=== PATIENT | female | born 1955 | race Caucasian/White ===

== ENCOUNTER 2019-03-18 07:30 | Inpatient (IN) ==
[2019-04-13] MEDS ORDERED: LIDOCAINE W/ SODIUM BICARB 0.5 ML SYR ONE (05:54)
[2019-04-13] MEDS ORDERED: Lactated Ringers 1,000 ML PRIMARY IV ONE ×2 (05:54→06:00)
[2019-04-13] MEDS ORDERED: Vancomycin Inj 1gm vial ONE (05:54)
[2019-04-13] MEDS ORDERED: Sodium Chloride 0.9% 250 ML ONE ×2 (05:54→06:31)
[2019-04-13] MEDS ORDERED: ceFAZolin Inj 2gm (Premix) 2 GM/50 ML BAG IV ONE ×2 (05:54→06:00)
[2019-04-13] MEDS ORDERED: Vancomycin-PHA to Dose IV PRN (06:00)
[2019-04-13] MEDS ORDERED: LIDOCAINE W/ SODIUM BICARB 0.5 ML SYR SUBD ONE (06:00)
[2019-04-13] MEDS ORDERED: Nasal Sanitizer POPSWAB ampule 3 AMP (Nozin) PREOP DOSE ENOS SCH (06:00)
[2019-04-13 06:21] LABS: CLARITY,URINE CLEAR (CLEAR); COLOR,URINE YELLOW (Y); URINE SAMPLE TYPE CLEAN CATCH URINE
[2019-04-13 06:22] LABS: BILIRUBIN,URINE NEGATIVE (NEG); GLUCOSE, URINE (UA) NEGATIVE (NEG); OCCULT BLOOD,URINE Trace-intact (NEG); PROTEIN,URINE NEGATIVE (NEG); UROBILINOGEN,URINE 0.2 EU/dL (0.2)
[2019-04-13] MEDS ORDERED: MIDAZOLAM 5 MG/1 ML ONE (06:30)
[2019-04-13] MEDS ORDERED: REMIFENTANIL 1 MG/1 ML IV ONE (06:30)
[2019-04-13] MEDS ORDERED: PROPOFOL 10 MG/1 ML (200 MG/20 ML) VIAL IV ONE ×2 (06:30→12:04)
[2019-04-13] MEDS ORDERED: REMIFENTANIL HCL 2 MG VIAL IV ONE ×2 (06:30→12:45)
[2019-04-13] MEDS ORDERED: Propofol 1,000 MG/100 ML VIAL IV ONE ×2 (06:30→10:33)
[2019-04-13] MEDS ORDERED: fentaNYL Inj 250 MCG/5 ML VIAL ONE (06:30)
[2019-04-13] MEDS ORDERED: LIDOCAINE MPF 2% - 5 ML (20 MG/1 ML) ONE (06:34)
[2019-04-13] MEDS ORDERED: Sodium Chloride 0.9% vial 10 ML ONE ×2 (06:45→12:07)
[2019-04-13] MEDS ORDERED: BUPIVACAINE 0.25% W/ EPI - 10 ML VIAL ONE (06:45)
[2019-04-13] MEDS ORDERED: BACITRACIN 50,000 UNIT VIAL IRRIG ONE ×2 (06:46→12:07)
[2019-04-13] MEDS ORDERED: IPRATROPIUM/ALBUTEROL SULFATE 3 ML NEB NEB ONE ×3 (07:06→13:51)
[2019-04-13] MEDS ORDERED: ONDANSETRON 4 MG/2 ML VIAL ONE ×2 (07:13→13:06)
[2019-04-13] MEDS ORDERED: DEXAMETHASONE PF 10 MG/1 ML VIAL ONE (07:13)
[2019-04-13] MEDS ORDERED: ePHEDrine Inj 50 MG/ML AMP ONE (08:01)
[2019-04-13] MEDS ORDERED: KETAMINE 100 MG/1 ML - 5 ML ONE (08:24)
[2019-04-13] MEDS ORDERED: Lactated Ringers 2,000 ML PRIMARY IV ONE (12:42)
[2019-04-13] MEDS ORDERED: ceFAZolin 1 GM VIAL ONE (12:42)
[2019-04-13] MEDS ORDERED: HYDROmorphone 2 MG/1 ML ONE ×2 (13:04→13:53)
[2019-04-13] MEDS ORDERED: Acetaminophen 1000mg Inj 1,000 MG/100 ML VIAL IV ONE (13:07)
[2019-04-13] MEDS: HYDROmorphone 2 MG/1 ML IVP PRN ×7 (13:50→14:26)
[2019-04-13] MEDS ORDERED: Prochlorperazine Edisylate Inj 10mg/2ml vial IVP PRN ×2 (13:50→15:19)
[2019-04-13] MEDS ORDERED: LIDOCAINE W/ SODIUM BICARB 0.5 ML SYR SUBD PRN (13:50)
--- NOTE | 2019-04-13 13:52 | CRNA.PROGR ---
Anesthesia Time - Procedure/Recovery Time Start Date: 04/13/19 End Date: 04/13/19 Anesthesia : Time In: 07:35 Anesthesia : Time Out: 13:43 Anesthesia : Total Time: 368 - Total Anesthesia Time Total Anesthesia Time (minutes): 368 - Other Weight: 65.136 kg Height: 5 ft 2 in Body Mass Index (BMI): 26.2 Physical Status: P2 Anesthesia Type: General Anesthesia : ET (TIVA)
--- NOTE | 2019-04-13 13:53 | CRNA.PROGR ---
Anesthesia Recovery Phase I - Post Anesthesia Evaluation Patient's Condition on Arrival in Phase I: Stable Pain Level: 5
[2019-04-13] MEDS ORDERED: MAGNESIUM CITRATE 296 ML SOLUTION PO PRN (15:19)
[2019-04-13] MEDS ORDERED: Vancomycin-PHA to Dose IV SCH (15:19)
[2019-04-13] MEDS ORDERED: PROMETHAZINE 25 MG/1 ML VIAL IM PRN (15:19)
[2019-04-13] MEDS ORDERED: DIAZEPAM 5 MG TABLET PO PRN (15:19)
[2019-04-13] MEDS ORDERED: MAGNESIUM 400 MG/5 ML - 30 ML (MILK OF MAGNESIA) PO PRN (15:19)
[2019-04-13] MEDS ORDERED: CYCLOBENZAPRINE 10 MG TABLET PO PRN (15:19)
[2019-04-13] MEDS ORDERED: Fleet Enema 133ml RECTAL PRN (15:19)
[2019-04-13] MEDS ORDERED: Ondansetron ODT Tab 4 MG TAB PO PRN (15:19)
[2019-04-13] MEDS ORDERED: HYDROcodone-APAP 10 MG-325 MG TABLET PO PRN (15:19)
[2019-04-13] MEDS ORDERED: LISINOPRIL PO SCH (15:19)
[2019-04-13] MEDS ORDERED: ONDANSETRON 4 MG/2 ML VIAL IVP PRN (15:19)
[2019-04-13] MEDS ORDERED: HYDROcodone-APAP 5 MG -325 MG TABLET PO PRN (15:19)
[2019-04-13] MEDS ORDERED: BISACODYL 5 MG TABLET PO PRN (15:19)
[2019-04-13] MEDS ORDERED: HYDROCHLOROTHIAZIDE PO SCH (15:19)
[2019-04-13] MEDS ORDERED: DOCUSATE 100 MG CAPSULE PO PRN (15:19)
--- NOTE | 2019-04-13 15:35 | CONSULT ---
Consult Note - Consult Reason for Consult: PreOp Consulation : Neuro Requesting Physician: Diann Primary Care Provider: WINNIE LEO - History of Present Illness History of Present Illness: Is a very nice 64-year-old female from [facility] here for neck surgery by Dr. Tidwell hospitalist was consulted for hypertension. Patient denies any chest pain nausea vomiting and is postop in stable and was seen with nursing and [facility] [facility] in the room Past Medical History Medical History: Hypertension, cholesterol, depression Tobacco Use: Current Every Day Smoker Do you dip or chew tobacco: No In the Past 12 Months, Have Used or Abuse Any of the Following Substance: None Review of Systems - Review of Systems All Systems: Reviewed & No Additional Complaints Except as Stated - Respiratory Respiratory: DENIES: Negative System Review, Cough, Sputum, Dyspnea At Rest, Dyspnea with Exertion, Pleuritic Pain, Hemoptysis, Wheezing, Other, See HPI - Cardiovascular Cardiovascular: DENIES: Negative System Review, Chest Pain, Edema, Syncope, Palpitations, Orthopnea, Paroxysmal Nocturnal Dyspnea, Other, See HPI - Gastrointestinal Gastrointestinal / Abdominal: DENIES: Negative System Review, Nausea, Vomiting, Diarrhea, Constipation, Abdominal Pain, Bloody Stool, Poor Appetite, Heartburn, Regurgitation, Bloating, Lactose Intolerance, Melena, Bright Red Blood per Rectum, Other, See HPI Medication / Allergies Home Medications: Home Medications Medication Instructions Recorded Confirmed ascorbic acid (vitamin C) 500 mg 1 cap PO DAILY cap 11/26/18 04/13/19 capsule atorvastatin 10 mg tablet 10 mg PO QDAY 11/26/18 04/13/19 bupropion HCl SR 150 mg tablet,12 150 mg PO QDAY 11/26/18 04/13/19 hr sustained-release cholecalciferol (vitamin D3) 2,000 2,000 unit PO QDAY 11/26/18 04/13/19 unit capsule clobetasol 0.05 % topical cream 1 applic TOPICAL BID 11/26/18 04/13/19 diclofenac 0.1 % eye drops 1 drp OP QID 11/26/18 04/13/19 lisinopril 20 1 tab PO QDAY 11/26/18 04/13/19 mg-hydrochlorothiazide 25 mg tablet multivitamin,[id number] 1 tab PO QDAY 11/26/18 04/13/19 tablet oxycodone 10 mg tablet 10 mg PO Q4-6H PRN 11/26/18 04/13/19 vitamin B complex tablet 1 tab PO QDAY 11/26/18 04/13/19 Diazepam 5 mg PO .SEE INSTRUCT BELOW PRN 04/10/19 04/13/19 Allergies/Adverse Reactions: Allergies Allergy/AdvReac Type Severity Reaction Status Date / Time No Known Allergies Allergy Verified 04/13/19 06:19 Exam - Vitals Vital Signs: Vital Signs Temperature 96.8 F Temperature Source Temporal Artery Scan Pulse Rate [Pulse Oximeter] 112 Pulse Rate 100 Respiratory Rate 16 Blood Pressure [Right Arm] 140/97 Blood Pressure 110/83 Pulse Ox 96 Oxygen Flow Rate 3 Oxygen Delivery Method Nasal Cannula Height 5 ft 2 in Weight 143 lb 9.6 oz - General General Appearance: No Acute Distress, Cooperative - Head Head Exam: Normal Inspection - Eye Eye Exam: POSITIVE: Normal Appearance, PERRL, EOMI, No Scleral Icterus - Respiratory Respiratory Exam: POSITIVE: Clear to Auscultation - Bilaterally, Breathing Non Labored, Normal To Percussion, Normal to Percussion and Palpation - Cardiovascular Cardiovascular Exam: POSITIVE: RRR, No Murmur, No Clicks, No Gallops, No Rubs, PMI Non-Displaced - GI/Abdominal GI/Abdominal Exam: POSITIVE: Normal Bowel Sounds, Non Tender, Non Distended, Soft, No Masses, No Hepatomegaly, No Splenomegaly, No Organomegaly Assessment and Plan - Patient Problems (1) High blood pressure Current Visit: No Status: Chronic Comment: Stable continue current medication Code(s): I10 - Essential (primary) hypertension (2) High cholesterol Current Visit: No Status: Chronic Comment: Continue current medication Code(s): E78.00 - Pure hypercholesterolemia, unspecified (3) S/P neck surgery, follow-up exam Current Visit: Yes Status: Acute Comment: Defer to Dr. Tidwell for follow-up pain control and discharge orders and instructions Code(s): Z09 - Encounter for follow-up examination after completed treatment for conditions other than malignant neoplasm
[2019-04-13] MEDS: oxyCODONE IR Tab 5 MG TAB PO PRN ×3 (16:07→23:42)
--- NOTE | 2019-04-13 17:04 | GEN.OPNOTE ---
Operative Note Surgery Date: 04/13/19 Preoperative Diagnosis: 1. Chronic neck pain. 2. Headaches most likely cervicogenic. 3. Multilevel cervical degenerative disc disease most advanced at C3-4, C4-5, C5-6 and C6-7. 4. Multilevel cervical spondylosis. 5. Loss of normal cervical lordosis. Postoperative Diagnosis: 1. Chronic neck pain. 2. Headaches most likely cervicogenic. 3. Multilevel cervical degenerative disc disease most advanced at C3-4, C4-5, C5-6 and C6-7. 4. Multilevel cervical spondylosis. 5. Multilevel cervical central canal stenosis. 6. Multilevel bilateral cervical neuroforaminal stenosis. 7. Loss of normal cervical lordosis. Procedure: 1.) Arthrodesis, anterior cervical, with discectomy, osteophytectomy and foraminotomies bilaterally with removal of the posterior longitudinal ligament with decompression of central canal and bilateral neuroforaminal stenosis and disc space preparation for fusion of the interspace, C3-4. (CPT code: 92601). 2.) Arthrodesis, anterior cervical, with discectomy, osteophytectomy and foraminotomies bilaterally with removal of the posterior longitudinal ligament with decompression of central canal and bilateral neuroforaminal stenosis and disc space preparation for fusion of the interspace, C4-5. (CPT code: 72845). 3.) Arthrodesis, anterior cervical, with discectomy, osteophytectomy and foraminotomies bilaterally with removal of the posterior longitudinal ligament with decompression of central canal and bilateral neuroforaminal stenosis and disc space preparation for fusion of the interspace, C5-6. (CPT code: 32545). 4.) Arthrodesis, anterior cervical, with discectomy, osteophytectomy and foraminotomies bilaterally with removal of the posterior longitudinal ligament with decompression of central canal and bilateral neuroforaminal stenosis and disc space preparation for fusion of the interspace, C6-7. (CPT code: 89253). 5.) Insertion of a 7 mm x 14 mm x 17 mm 6-degree lordotic Adalgisa Tritanium C titanium anterior cervical cage filled in the center with Sturgis DBM Putty (implantable allograft) into the C3-4 interspace for fusion of the C3-4 interspace. (CPT code: 87704). 6.) Insertion of a 6 mm x 14 mm x 17 mm 6-degree lordotic Sturgis Tritanium C titanium anterior cervical cage filled in the center with Adalgisa DBM Putty (implantable allograft) into the C4-5 interspace for fusion of the C4-5 interspace. (CPT code: 54090). 7.) Insertion of a 6 mm x 14 mm x 17 mm 6-degree lordotic Sturgis Tritanium C titanium anterior cervical cage filled in the center with Adalgisa DBM Putty (implantable allograft) into the C5-6 interspace for fusion of the C5-6 interspace. (CPT code: 51366). 8.) Insertion of a 6 mm x 14 mm x 17 mm 6- degree lordotic Sturgis Tritanium C titanium anterior cervical cage filled in the center with Adalgisa DBM Putty (implantable allograft) into the C6-7 interspace for fusion of the C5-6 interspace. (CPT code: 38498). 9.) Anterior cervical plating, C3-7 using a 4 level, 10 hole, 60 mm Adalgisa Aviator titanium anterior cervical plate affixed to the C3 vertebral body with 4.0 mm x 16 mm variable angle titanium anterior cervical screws, to the C4, C5, and C6 vertebral bodies using 4.0 mm x 14 mm variable angle titanium anterior cervical screws, and to the C7 vertebral body using 4.0 mm x 16 mm fixed angle titanium anterior cervical screws. (CPT code: 76375). 10.) Use of 5 cc of Sturgis DBM Putty (implantable allograft) for filling of the anterior cervical cages. (CPT code: 06632). 11.) Use of the operative microscope for the microsurgical techniques used for the C3-4, C4-5, C5-6, and C6-7 discectomies and foraminotomies. (CPT code: 75467). 12.) Use of intra-operative fluoroscopy for location of the correct surgical levels and for confirmation of the final position of the intervertebral cages and final confirmation of the position of the anterior cervical hardware elements. 13.) Use of intra-operative neuromonitoring including EMG's, SSEP's, and MEP's. Surgeon: Pedro Tidwell MD Forepart Laster: THIERRY Mcgregor Anesthesia Provider: Alfred Mishra CRNA Anesthesia Type: General Estimated Blood Loss (mL): 35 Fluids: See anesthesia record Pathology: None Indications: Ms. De Los Santos is a 63 year old woman who underwent a L2-S1 transforaminal lumbar interbody fusion and posterolateral instrumented fusion on 02/17/18 in my previous [facility] practice. She continues to do very well following that procedure with very minimal low back pain. More recently I have been following Ms. De Los Santos in my new [facility] practice for a chief complaint of neck pain. She has had neck pain and headaches for years. She has no arm pain, numbness or weakness. Ms. De Los Santos had imaging of the cervical spine that demonstrated multilevel cervical degenerative disc disease, moderate at C3-4 level, early advanced at the C4-5, C5-6 and C6-7 with diffuse disc/osteophyte complexes at these levels, and multilevel cervical facet arthropathy and hypertrophy. She had failed to have improvement in her neck pain with expectant management and non-operative therapies. We discussed the option of proceeding with a C3-C7 ACDF. She wished to proceed with that surgical procedure. She presents today to have her surgical procedure performed. Findings: 1.) Severe narrowing of the C4-5, C5-6, C6-7 interspaces. 2.) Diffuse disc/osteophyte complexes C3-4, C4-5, C5-6, and C6-7 producing central canal stenosis at each level, more significant then expected based on pre-operative imaging. 3.) Multilevel cervical neuroforaminal stenosis bilaterally. 4.) Partial calcification of the posterior annulus and posterior longitudinal ligament, C5-6. Complications: None Operative Summary: Ms. De Los Santos was met in the preoperative area. Her documented surgical history and physical was reviewed. We reviewed the procedure to be performed and we were in agreement on the procedure to be performed and this matched what was written on the patient's consent form. Any questions that Ms. De Los Santos or her had were answered before she was taken back to the operating room suite. Ms. De Los Santos was brought back to the operating room suite. She was moved over onto the surgical bed in the supine position. General anesthesia was induced by the anesthesia staff and she was intubated. A Moreau catheter was placed in her bladder for the procedure. She had pneumatic compression hose placed on her lower legs bilaterally. Her head was placed on a gel ring and rolled up surgical towels were placed in the intrascapular area and under her shoulders bilaterally. Her arms were gently tucked at her sides. All bony prominences were well padded. Her Moreau catheter was checked to be free from kinks. Her pneumatic compression hose were attached to a pneumatic compression devise. The C-arm fluoroscopy unit was used to help localize the skin incision for the approach to the intended surgical levels. The skin was marked along the medial border of the sternocleidomastoid muscle with a skin marker. Ms. De Los Santos was prepped and draped in the usual and standard fashion. She was given 2 grams of Ancef and 1 gram of vancomycin IV for perioperative antibiosis. A standard surgical timeout was performed identifying the correct patient, the correct procedure, and the correct equipment being available for the procedure. The intended skin incision was injected subcutaneously with quarter percent Marcaine with 1 in 200,000 epinephrine. The skin was incised with a 10 blade scalpel and all dermal and superficial bleeding points controlled with bipolar cautery. Dissection was continued down through the subcutaneous tissue to the level of the platysma muscle. The platysma muscle was incised with the Metzenbaum scissors in the direction of the skin incision. This allowed identification the medial border of the sternocleidomastoid muscle. Further dissection identified the omohyoid muscle which was circumferentially dissected out, tagged with two 0-Silk suture and then cut with a Metzenbaum scissors with the muscle stumps retracted with snaps attached to the sutures. Continued dissection was performed medial to the sternocleidomastoid muscle in both a sharp and blunt fashion down to the pre- vertebral fascia. The carotid artery was palpated to be lateral to the dissection plane. Cloward hand-held retractors were used to retract and protect the soft tissues w hile the prevertebral fascia was dissected with a Kitner. Once a disc space became exposed a bent spinal needle was placed into the disc space and the level was localized as the C5-6 level, one of the intended surgical levels with lateral fluoroscopy. Continued dissection of the prevertebral fascia was performed exposing the C3, C4, C5, C6, and C7 vertebral bodies. The medial border of the longus coli muscle was dissected with Bovie cautery with an insulated tip turned down to a low setting from C3-C7 bilaterally. The hand-held Cloward retractors were then replaced with the Nursing Care Attendant self-retaining retractor system which was first placed at the C3-4 level to expose this level and protect the soft tissues at this level. A 12 mm distraction pin was placed into the C3 vertebral body and another was placed into the C4 vertebral body. The operative microscope was brought into the surgical field and used for the microsurgical techniques used for the C3-4 discectomy. An annulotomy was performed with a 15 blade scalpel and disc material was removed with a pituitary rongeur. Additional disc and cartilaginous endplate was loosened in the disc space using a small straight curette with the fragments being removed with a pituitary rongeur. The high-speed StrongLoop drill with a matchstick bit was used to perform arthrodesis/decortication of the C3 and C4 endplates preparing the endplates for fusion. The same drill with the same bit was used to drill away the prominent diffuse osteophytes along the posterior inferior aspect of the C3 vertebral body and the posterior superior aspect of C4 vertebral body as well as the uncovertebral joints bilaterally. Foraminotomies were performed bilaterally with the same drill with same bit. A nerve hook was used to define the plane between the posterior longitudinal ligament and the dura. The posterior longitudinal ligament was completely removed with small Kerrison punches. The same instruments were used to extend the foraminotomies bilaterally that had been started with the high-speed drill with a matchstick bit. Excellent decompression of the spinal canal, neuroforamen, and exiting nerve roots was assured both by visual inspection as well as by palpation with a nerve hook underneath the vertebral bodies and out the neuroforamen bilaterally. The interspace was irrigated with bacitracin irrigation. FloSeal hemostatic agent was placed over all exposed dural elements. The interspace was sized the appropriate size anterior cervical cage. A 7 mm x 14 mm x17 mm 6-degree lordotic Tritanium C titanium anterior cervical cage was selected and filled in the center with Sturgis DBM Putty (implantable allograft) and then inserted into the C3-4 interspace with the organization development consultant. The cage was gently countersunk with a bone tamp and mallet. The cage obtained good purchase between the C3 and C4 endplates. The final position of the cage was confirmed with lateral fluoroscopy. The C3 [place] distraction pin was removed and bony bleeding was controlled with FloSeal and a surgical endy. The Nursing Care Attendant self-retaining retractor system was removed and placed across the C4-5 level for the exposure this level and the protection of the soft tissues at this level. The [place] distraction pin was placed into the C5 vertebral body. The operative microscope was used for the microsurgical techniques used for the C4-5 discectomy. An annulotomy was performed with a 15 blade scalpel and disc material was removed with a pituitary rongeur. Additional disc and cartilaginous endplate was loosened in the disc space with a small straight curette with the fragments being removed with a pituitary ronqeur. The disc space was more collapsed at this level so the high-speed StrongLoop drill with a matchstick bit was used to perform the majority of the discectomy at this level. The same drill with the same bit was used to perform arthrodesis/decortication of the C4 and C5 endplates preparing the endplates for fusion. The same drill with the same bit was used to drill away the diffuse, prominent osteophytes along the posterior inferior aspect of the C4 vertebral body and the posterior superior aspect of the C5 vertebral body as well as to drill away the uncovertebral joint hypertrophy bilaterally. Foraminotomies were performed bilaterally with the same drill with the same bit. A nerve hook was used to define the plane between the posterior longitudinal ligament and the dura. The posterior longitudinal ligament was completely removed with small Kerrison punches. The same instruments were used to extend the foraminotomies bilaterally that had been started with the high-speed drill with a matchstick bit. Excellent decompression of the spinal canal, neuroforamen, and exiting nerve roots was assured both by visual inspection as well as by palpation with a nerve hook underneath the vertebral bodies and out the neuroforamen bilaterally. The interspace was irrigated with bacitracin irrigation. FloSeal hemostatic agent was placed over all exposed dural elements. The interspace was sized the appropriate size anterior cervical cage. A 6 mm x 14 mm x 17 mm 6-degree Tritanium C titanium anterior cervical cage was selected and filled in the center with Sturgis DBM Putty (implantable allograft) and then inserted into the C4-5 interspace with the organization development consultant. The cage was gently countersunk with a bone tamp and mallet. The cage obtained good purchase between the C4 and C5 endplates. The final position of the cage was confirmed with lateral fluoroscopy. The C5 [place] distraction pin was removed and bony bleeding was controlled with FloSeal and a surgical endy. The Nursing Care Attendant self-retaining retractor system was removed and placed across the C5-6 level for the exposure this level and the protection of the soft tissues at this level. The [place] distraction pin was placed into the C6 vertebral body. The operative microscope was used for this microsurgical techniques used for the C5-6 discectomy. An annulotomy was performed with a 15 blade scalpel and disc material was removed with a pituitary rongeur. Additional disc and cartilaginous endplate was loosened in the anterior aspect of the disc space with a small straight curette with the fragments being removed with a pituitary ronqeur. The disc space was again somewhat collapsed at this level so the high-speed StrongLoop drill with a matchstick bit was used to perform the majority of the discectomy at this level and to perform the arthrodesis/decortication of the C5 and C6 endplates preparing the endplates for fusion. The same drill with the same bit was used to drill away the diffuse, prominent osteophytes along the posterior inferior aspect of the C5 vertebral body and the posterior superior aspect of the C6 vertebral body as well as to drill away the uncovertebral joint hypertrophy bilaterally. Foraminotomies were performed bilaterally with the same drill with the same bit. A nerve hook was used to define the plane between the posterior longitudinal ligament and the dura. The posterior longitudinal ligament was completely removed with small Kerrison punches. The same instruments were used to extend the foraminotomies bilaterally that had been started with the high-speed drill with a matchstick bit. Excellent decompression of the spinal canal, neuroforamen, and exiting nerve roots was assured both by visual inspection as well as by palpation with a nerve hook underneath the vertebral bodies and out the neuroforamen bilaterally. The interspace was irrigated with bacitracin irrigation. FloSeal hemostatic agent was placed over all exposed dural elements. The interspace was sized the appropriate size anterior cervical cage. A 6 mm x 14 mm x 17 mm 6-degree Tritanium C titanium anterior cervical cage was selected and filled in the center with Sturgis DBM Putty (implantable allograft) and then inserted into the C5-6 interspace with the organization development consultant. The cage was gently countersunk with a bone tamp and mallet. The cage obtained good purchase between the C5 and C6 endplates. The final position of the cage was confirmed with lateral fluoroscopy. The C5 Schenevus distraction pin was removed and bony bleeding was controlled with FloSeal and a surgical endy. The Nursing Care Attendant self-retaining retractor system was removed and placed across the C5-6 level for the exposure this level and the protection of the soft tissues at this level. The Schenevus distraction pin was placed into the C7 vertebral body. The operative microscope was used for the microsurgical techniques used for the C6-7 discectomy. An annulotomy was performed with a 15 blade scalpel and disc material was removed with a pituitary rongeur. Additional disc and cartilaginous endplate was loosened in the anterior disc space with a small straight curette with the fragments being removed with a pituitary ronqeur. The high-speed StrongLoop drill with a matchstick bit was used to perform the majority of the discectomy at this level due to the degree of disc space collapse and to perform arthrodesis/decortication of the C6 and C7 endplates preparing the endplates for fusion. The same drill with the same bit was used to drill away the diffuse, prominent osteophytes along the posterior inferior aspect of the C6 vertebral body and the posterior superior aspect of the C7 vertebral body as well as to drill away the uncovertebral joint hypertrophy bilaterally. Foraminotomies were performed bilaterally with the same drill with the same bit. A nerve hook was used to define the plane between the posterior longitudinal ligament and the dura. The posterior longitudinal ligament was completely removed with small Kerrison punches. The same instruments were used to extend the foraminotomies bilaterally that had been started with the high-speed drill with a matchstick bit. Excellent decompression of the spinal canal, neuroforamen, and exiting nerve roots was assured both by visual inspection as well as by palpation with a nerve hook underneath the vertebral bodies and out the neuroforamen bilaterally. The interspace was irrigated with bacitracin irrigation. FloSeal hemostatic agent was placed over all exposed dural elements. The interspace was sized the appropriate size anterior cervical cage. A 7 mm x 14 mm x 17 mm 6-degree Tritanium C titanium anterior cervical cage was selected and filled in the center with Sturgis DBM Putty (implantable allograft) and then inserted into the C6-7 interspace with the organization development consultant. The cage was gently countersunk with a bone tamp and mallet. The cage obtained good purchase between the C6 and C7 endplates. The final position of the cage was confirmed with lateral fluoroscopy. The [place] distraction pins in the C6 and C7 vertebral bodies were removed. Bony bleeding was controlled FloSeal and surgical patties. The Nursing Care Attendant self- retaining retractor system was removed and placed in the center portion of the surgical dissection to provide the proper exposure needed for the instrumentation portion of the procedure. Any remaining C3, C4, C5, C6, and C7 anterior osteophytes were removed with the large Leksell rongeur as well as with the high speed drill with the matchstick bit. The appropriate size anterior cervical plate were selected both by visual inspection as well as by lateral fluoroscopy. A 4 level, 10 hole, 60 mm Adalgisa Aviator titanium anterior cervical plate was selected and affixed to the C3 vertebral bodies using 4.0 mm x 16 mm variable angle titanium anterior cervical screws and to the C4, C5, and C6 vertebral bodies using 4.0 mm x 14 mm variable angle titanium screws, and to the C7 vertebral body using 4.0 mm x 16 mm fixed angle titanium anterior cervical screws. All screws obtained good purchase in the vertebral body bone. The locking mechanism was then deployed at each with visual inspection confirming that the locking mechanism fully deployed across each of the screw heads at each level of the plate bilaterally. The Nursing Care Attendant self-retaining retractor system was removed from the surgical site. Final AP and lateral fluoroscopic images were obtained. The dalton of the dissection plane were inspected for any bleeding points. Any identified were coagulated with bipolar cautery. The surgical site was copiously irrigated with bacitracin irrigation allowing the irrigant to sit to again inspect for any bleeding points with none identified. A medium ROSEMARY drain was placed into the surgical site. The closure portion of the procedure was begun. The omohyoid muscle was re-approximated by the 0-Silk suture attached to the muscle stumps and by two interrupted 3-0 Vicryl suture. The platysma muscle was reapproximated with 3-0 Vicryl suture in an interrupted fashion. The dermis and superficial subcutaneous tissue was reapproximated with 3-0 Vicryl suture in an inverted interrupted fashion. The incision was cleansed with a bacitracin soaked sponge and dried with a sterile dry sponge. Steri-Strips were placed across the incision. The incision was dressed with a Covaderm dressing. The surgical drain was secured with suture. The drain site was dressed. All surgical drapes removed from Ms. De Los Santos. She was carefully moved over onto the PACU stretcher. She was awoken and extubated by the anesthesia staff. She was taken to the recovery room in stable condition. All surgical counts reported as correct by the scrub and circulating personnel. A Physician's Forepart Laster, Ms. Ngoc Rock PA-C, assisted with the procedure including the exposure and closure portions of the procedure. She also provided irrigation and suctioning throughout the procedure.
--- NOTE | 2019-04-13 17:26 | NEURO.PROG ---
Subjective Post Op Day: 0 Pain Management: PO Moreau Catheter: Yes Flatus: Yes Diet: Regular Ambulating: Yes Additional Details: Awake and alert in bed on med/surg floor. Neck sore. Denies any arm pain, numbness, tingling, or weakness. Eating going slow. Neck - flat and soft. Dressing - clean, dry, intact. Drain output - 30cc in PACU. Easily raises arms and puts hand on head and easily raises arms up above her head bilaterally. Continue post-operative antibiotics. Continue post-operative pain control. Continue to advance diet. Mobilize. Objective : Data - Vital Signs Vital Signs and I&O: Vital Signs - Last Taken Temperature 97.0 F 04/13/19 16:04 Pulse Rate 109 H 04/13/19 16:04 Respiratory Rate 14 04/13/19 16:04 Blood Pressure 129/95 04/13/19 16:04 Pulse Ox 94 04/13/19 16:04 Intake and Output (24hr x 4 totals) 04/11/19 04/12/19 04/13/19 04/14/19 05:59 05:59 05:59 05:59 Intake Total 3900 / 3900 Output Total 730 / 730 Balance 3170 / 3170
[2019-04-13] MEDS: ceFAZolin Inj 1 GM in Sodium Chloride 0.9% 100 ML IV SCH (20:31)
[2019-04-13] MEDS: MORPHINE SULFATE 2 MG/1 ML IVP PRN (20:56)
[2019-04-13] MEDS ORDERED: ATORVASTATIN 10 MG TABLET PO SCH (21:00)
[2019-04-14] MEDS ORDERED: CloNIDine Tab 0.1 MG TABLET PO ONE (00:52)
[2019-04-14] MEDS: MORPHINE SULFATE 2 MG/1 ML IVP PRN (01:11)
[2019-04-14] MEDS: ceFAZolin Inj 1 GM in Sodium Chloride 0.9% 100 ML IV SCH (03:45)
[2019-04-14] MEDS: HYDROcodone-APAP 7.5 MG-325 MG TABLET PO PRN ×4 (03:45→15:23)
[2019-04-14] MEDS ORDERED: LISINOPRIL 20 MG TABLET PO ONE (04:04)
[2019-04-14] MEDS ORDERED: LISINOPRIL 20 MG TABLET PO SCH ×3 (04:15→09:00)
[2019-04-14 04:31] LABS: BASOPHILS # (AUTO) 0.01 10*3/UL; BASOPHILS % (AUTO) 0.1 % (0-1); EOSINOPHILS # (AUTO) 0.01 10*3/UL; EOSINOPHILS % (AUTO) 0.1 % (0-8); Hematocrit [HCT] 41.7 % (37.0-47.0); Hemoglobin [HGB] 14.1 g/dL (12.0-16.0); LYMPHOCYTES # (AUTO) 1.59 10*3/uL; MEAN CORPUSCULAR HEMOGLOBIN 31.5 PG (27-31); MEAN CORPUSCULAR HGB CONC 33.8 g/dL (33-37); MEAN CORPUSCULAR VOLUME 93.1 FL (81-99); MEAN PLATELET VOLUME 8.8 FL (7.4-12.2); MONOCYTES % (AUTO) 8.1 % (5-15); NEUTROPHILS # (AUTO) 10.86 10*3/UL; NEUTROPHILS % (AUTO) 79.8 % (50-80); RED BLOOD COUNT 4.48 10^6/uL (4.20-5.40)
[2019-04-14 04:41] LABS: BLOOD UREA NITROGEN 9 mg/dL (7-22)
[2019-04-14 04:46] LABS: PLATELET MORPHOLOGY COMMENT NORMAL MORPHOLOGY (NORM); RBC MORPHOLOGY COMMENT NORMAL MORPHOLOGY (NORM); WBC MORPHOLOGY COMMENT NORMAL MORPHOLOGY (NORM)
[2019-04-14] MEDS ORDERED: DEXAMETHASONE PF 10 MG/1 ML VIAL IVP ONE (05:03)
--- NOTE | 2019-04-14 06:49 | NEURO.PROG ---
Subjective Post Op Day: 1 Pain Management: PO [place] Catheter: No Flatus: No Diet: Regular Ambulating: Yes Additional Details: On rounds with Dr Tidwell this morning, Mrs De Los Santos was awake and alert, sitting up in bed, taking PO fluids and visiting with her . Her neuro exam revealed strong bilateral hand and arm strength without numbness or tingling. Her neck dressing is dry and intact and she does not have significant swelling. She recounted her feeling of her neck swelling and closing her airway in the night, though her nurse reports no evidence of swelling and Mrs De Los Santos was al ways able to converse and swallow and O2 saturations were not affected by her symptoms. She did become hypertensive and Dr Montiel was notified and treated her blood pressure. This morning she says that those symptoms of her neck swelling and not being able to breathe have resolved. She thinks it was the oxycodone that made her throat feel that way. Her hemovac drained 45 ml of serosanguinous fluid through the night. She has been up in her room and walked in the halls and is wanting to go home today. Dr Tidwell told her to see how she feels through the morning and that if she has no further episodes of respiratory difficulty, he's ok if she goes this afternoon. We will discontinue the oxycodone. Objective : Data - Labs CBC and BMP: 04/14/19 03:50 04/14/19 03:50 - Vital Signs Vital Signs and I&O: Vital Signs - Last Taken Temperature 97.8 F 04/14/19 04:31 Pulse Rate 101 H 04/14/19 04:31 Respiratory Rate 16 04/14/19 04:31 Blood Pressure 132/97 04/14/19 06:14 Pulse Ox 98 04/14/19 04:51 Intake and Output (24hr x 4 totals) 04/12/19 04/13/19 04/14/19 04/15/19 05:59 05:59 05:59 05:59 Intake Total 5488 / 5488 Output Total 4025 / 4025 700 / 700 Balance 1463 / 1463 -700 / -700
[2019-04-14] MEDS ORDERED: PANTOPRAZOLE 40 MG TABLET PO SCH (07:00)
[2019-04-14] MEDS ORDERED: BuPROPion SR Tab 150 MG TAB PO SCH (09:00)
[2019-04-14] MEDS ORDERED: HYDROCHLOROTHIAZIDE 25 MG TABLET PO SCH (09:00)
--- NOTE | 2019-04-14 10:41 | PDOC(PROG) ---
Interval History: Patient is feeling much better this morning she thinks her oxycodone made her feel if she could not breathe this is all resolved denies chest pain nausea or vomiting and is wanting to go home Objective : Data - Labs CBC and BMP: 04/14/19 03:50 04/14/19 03:50 Objective : Exam - General General Appearance: Cooperative - Respiratory Respiratory Exam: Clear to Auscultation - Bilaterally, Breathing Non Labored, Normal To Percussion, Normal to Percussion and Palpation - Cardiovascular Cardiovascular Exam: RRR, No Murmur, No Clicks, No Gallops, No Rubs, PMI Non- Displaced - GI/Abdominal GI/Abdominal Exam: Normal Bowel Sounds, Non Tender, Non Distended, Soft, No Masses, No Hepatomegaly, No Splenomegaly, No Organomegaly Assessment and Plan - Patient Problems (1) High blood pressure Current Visit: No Status: Chronic Comment: Stable at present time I did give her 1 Norvasc and that one of the lisinopril 40. She will resume her lisinopril 20 mg daily I do not think she will need the higher dose and add on pain and anxiety probably contributed to the high blood pressure Code(s): I10 - Essential (primary) hypertension (2) High cholesterol Current Visit: No Status: Chronic Code(s): E78.00 - Pure hypercholesterolemia, unspecified (3) S/P neck surgery, follow-up exam Current Visit: Yes Status: Acute Code(s): Z09 - Encounter for follow-up examination after completed treatment for conditions other than malignant neoplasm
[2019-04-14 11:42] VITALS: BP 125/87; RESP 20; TEMP 96.9; O2SAT 93
--- NOTE | 2019-04-14 11:43 | CRNA.PROGR ---
Anesthesia Note - Progress Notes Anesthesia Progress Note: Post OP Anesthesia Note Pt is up in chair at bedside. She states that her pain is well under control but was not good through the night. She is able tolerate a reg/soft diet. She does complain of a mild sore throat. She has been up ambulating and to the res troom without any assistance. Current VS are stable. Vital Signs - Last Taken Temperature 96.9 F 04/14/19 11:39 Pulse Rate 92 04/14/19 11:39 Respiratory Rate 20 04/14/19 11:39 Blood Pressure 125/87 04/14/19 11:39 Pulse Ox 93 04/14/19 11:39
--- NOTE | 2019-04-14 15:01 | NEURO.PROG ---
Subjective Post Op Day: 1 Additional Details: Mrs De Los Santos has done well today. No further issues with anxiety or feelings of loosing her airway. She has been up about in her room and walking the halls. No difficulty swallowing. Blood pressure has remained within normal limits. Not requiring oxygen. And she wishes to go home. Hand and arm strength good bilaterally. No paresthesias. Minimal serosanguinous drainage from hemovac. Incision dry and intact. Post op appointment given to her with Dr Tidwell in [place] on April 28. Activity and incision care instructions given Plan: Dishcharge home with her . Objective : Data - Labs CBC and BMP: 04/14/19 03:50 04/14/19 03:50 - Vital Signs Vital Signs and I&O: Vital Signs - Last Taken Temperature 96.9 F 04/14/19 11:39 Pulse Rate 92 04/14/19 11:39 Respiratory Rate 20 04/14/19 11:39 Blood Pressure 125/87 04/14/19 11:39 Pulse Ox 93 04/14/19 11:39 Intake and Output (24hr x 4 totals) 04/12/19 04/13/19 04/14/19 04/15/19 05:59 05:59 05:59 05:59 Intake Total 5488 / 5488 320 / 320 Output Total 4025 / 4025 700 / 700 Balance 1463 / 1463 -380 / -380
--- NOTE | 2019-04-14 15:34 | PTI REPORT ---
Thank you for the referral of Federica De Los Santos. She was seen on 04/14/19 for an inpatient evaluation status post cervical fusion. SUBJECTIVE: The patient is a 63-year-old female. The patient reports she lives in [place] and only had difficulty last night with pain control after surgery but states that her pain is now under control and she is having no difficulty getting around and is really anxious to get out of the hospital and get home today. PAST MEDICAL HISTORY: Past medical history can be found in the patient's medical record. OBJECTIVE FINDINGS: Pain: The patient reports a pain level in her neck as well a headache which she rates at a 4 to 5/10 on the verbal analog scale (0=no pain, 10=worst pain), again, stating that her pain is manageable. Incision: Her post op incision was unable to be inspected due to the post op bandage which looks clean and safely secured. Range of motion: Upon visual inspection, the patient's upper extremity motion was within functional limits. Activities of daily living: The patient was able to don and doff her [place] cervical collar appropriately. She was able to perform toileting activities independently. Ambulation: The patient demonstrated the ability to ambulate unlimited distance without the use of any type of assistive aide with a gait belt and stand by assistance as well as ascending and descending stairs with a normalized step over gait pattern. ASSESSMENT: Problem List: Recent cervical fusion Pain management Physical Therapy Goals: To be met by discharge from inpatient: Patient will be able to don and doff her neck brace independently. Patient will be able to ambulate over 300 feet for household and community ambulation for safety to return to home. Patient will be instructed on lifting precautions. TREATMENT PLAN: Patient will be seen B.I.D during the week and one time per day over the weekend as an inpatient to address the above goals and objectives. INITIAL TREATMENT: Treatment today consisted of the initial evaluation followed by going over lifting restrictions in regards to her surgery and donning and doffing her neck brace. The patient was educated on a home exercise program of tucking her chin and swallowing due to complaints of swallowing since her surgery. The therapist will notify occupational therapy of this for when they do their assessment for the patient to be discharged. The patient ambulated well over 300 feet and ascended and descended a flight of stairs. At this point the patient is appropriate for discharge and return to home. LARISA
--- NOTE | 2019-04-14 16:20 | OTI REPORT ---
Thank you for the referral of Federica De Los Santos. She was seen on 04/14/19 for an occupational therapy inpatient evaluation status post cervical fusion. SUBJECTIVE: The patient is a 63-year-old female who lives in [place], [place]. She reports that at prior level of function she was independent in all ADL tasks and had surgery secondary to chronic headache issues. The patient reports her pain is very minimal at this time and she is going to be discharged later this afternoon upon discharge orders from the doctor. The patient lives with her in a ranch style trailer with 5-6 stairs to the entrance of the home with handrails. The patient has a walk-in shower and comfort height toilets. She has no concerns about going home. PAST MEDICAL HISTORY: Past medical history can be found in the patient's medical record. OBJECTIVE FINDINGS: General observations: The patient was educated in post op cervical fusion precautions to include wearing the cervical collar when she is up and moving. The patient was educated on weight lifting restrictions and general movement restrictions. Activities of daily living: The patient did report that she put her pants on independently this morning without difficulty and she is waiting to put on her head well puller ephraim shirt until her cervical drain is removed by nursing. The patient was educated on use of production control supervisor to reach things she is unable to reach due to her cervical collar. The patient was able to complete standing grooming tasks independently. Ambulation: The patient demonstrated the ability to ambulate around the nurse's station without difficulty with no losses of balance with no assistive device. Transfers: The patient completed all functional transfers independently. ASSESSMENT: The patient did fantastic with occupational therapy session and will be discharged from OT at this time. The patient is safe to return home. TREATMENT PLAN: Patient will be discharged from OT services at this time. INITIAL TREATMENT: Treatment today consisted of the initial evaluation. The patient was issued a production control supervisor to help with picking up items from the floor that she is unable to reach secondary to her cervical collar. LARISA
== END 2019-04-14 15:29 | disposition home or self-care (01) | DRG 473 ==
LOC: OPS 04-13 05:45 → MED/SURG 04-13 14:57
PROVIDERS: ADMIT Neurological Surgery; ATTEND Neurological Surgery